=== PATIENT | female | born 1965 | race Caucasian/White ===

== ENCOUNTER → 2016-11-24 | Outpatient (CLI) | payer OTHER ==
[~2016-11-24] MED LIST: ATIVAN-DPS0.5 MG PO; BI-EST TP; BUSPAR DPS15 MG PO; CENTRUM SILVER1 EAC1 PO; LAMICTAL DPS100 MG PO; PERCOCET 10-321 EACH PO; PROGESTERONE100 MG PO; PROZAC DPS20 MG PO; SOMA-DPS350 MG PO; TREXIMET 85-501 EACH PO; VALIUM-DPS5 MG PO; ZANAFLEX4 MG PO; [UNRECOGNIZED DRUG - OTHER] TP
== END | disposition home or self-care (01) ==
LOC: RAD.S 11-16 08:30
DX: Z12.31 Encounter for screening mammogram for malignant neoplasm of breast (principal)